=== PATIENT | female | born 2000 | race Caucasian/White ===

== ENCOUNTER 2018-08-24 10:51 | Emergency (ER) | payer SELFPAY ==
[2018-08-24 11:19] VITALS: TEMP 98.2
[2018-08-24] MEDS: ONDANSETRON INJ 4 MG/2 ML VIAL IV ONE (11:25)
[2018-08-24 13:32] VITALS: BP 102/84; O2SAT 99
--- NOTE | 2018-08-24 13:39 | US ---
EXAM DESCRIPTION: Pelvic,Non-OB CLINICAL HISTORY: 17 years Female diffuse abd pain MAIN . COMPARISON: None. TECHNIQUE: Transabdominal sonographic images of the pelvis were acquired and submitted for review. FINDINGS: Uterus: * Orientation- Anteverted * Size- approximately 7.3 x 3.5 x 4.4 cm * Mass- None * Cervix- Unremarkable * Endometrium- normal endometrial stripe thickness is present measuring approximately 0.3 cm. No endometrial mass is demonstrated. Ovaries: * Size- right measures approximately 3.2 x 3.1 x 2.6 cm; left measures approximately 2.3 x 2.6 x 2.4 cm * Mass- None * Vascular flow- Present. Adnexa: * Mass- None. * Free fluid - None. IMPRESSION: Normal transabdominal pelvic ultrasound. Electronically signed by: Aadm Foy MD 08/24/2018 1:38 PM [facility]
--- NOTE | 2018-08-24 14:04 | ED.PDOC ---
History of Present Illness - General Chief Complaint: Abdominal Pain Stated Complaint: abdominal pain Time Seen by Provider: 08/24/18 11:50 Source: patient Exam Limitations: no limitations - History of Present Illness Initial Comments: Patient presents with abdominal pain for one month. It is generalized and non- specific. She is unable to describe the quality. There are no exacerbating nor alleviating factors. She says that she has had vomiting almost daily. She had diarrhea the first few days but that has resolved. No previous episodes. She says that she had an ultrasound about two years ago and it showed "something" on her ovary. She currently does not take any medications. No other complaints. Timing/Duration: other - one month Severity: moderate Improving Factors: nothing Worsening Factors: nothing Associated Symptoms: denies symptoms Allergies/Adverse Reactions: Allergies Amoxicillin Allergy (Verified 08/24/18 11:14) Home Medications: Ambulatory Orders Ondansetron [Zofran Odt] 4 mg PO Q4HR PRN #20 tab 08/24/18 Review of Systems - Review of Systems Constitutional: States: no symptoms reported EENTM: States: no symptoms reported Respiratory: States: no symptoms reported Cardiology: States: no symptoms reported Gastrointestinal/Abdominal: States: see HPI Genitourinary: States: no symptoms reported Musculoskeletal: States: no symptoms reported Skin: States: no symptoms reported Neurological: States: no symptoms reported Endocrine: States: no symptoms reported Hematologic/Lymphatic: States: no symptoms reported Past Medical History (General) - Patient Medical History Hx Stroke: No Hx Congestive Heart Failure: No Hx Diabetes: No Surgical History: no surgical history - Vaccination History Hx Influenza Vaccination: No - Social History Hx Tobacco Use: Yes - Female History Patient is a Female of Child Bearing Age (10 -59 yrs old): Yes Family Medical History - Family History Mother Family History: Unknown Living Status: Unknown Physical Exam - Physical Exam General Appearance: Alert Eye Exam: bilateral normal Ears, Nose, Throat: normal ENT inspection Neck: non-tender, full range of motion, supple Respiratory: lungs clear, normal breath sounds Cardiovascular/Chest: normal peripheral pulses, regular rate, rhythm, no edema Gastrointestinal/Abdominal: normal bowel sounds, non tender, soft Back Exam: normal inspection, no CVA tenderness Extremity: normal range of motion, non-tender Neurologic: no motor/sensory deficits, alert, normal mood/affect, oriented x 3 Skin Exam: normal color Lymphatic: no adenopathy Progress - Progress Progress: 08/24/18 14:05 Laboratory Tests 08/24/18 08/24/18 08/24/18 11:10 11:15 11:15 WBC 6.5 RBC 4.87 Hgb 13.9 Hct 42.2 MCV 86.6 MCH 28.5 MCHC 32.9 L RDW 14.1 Plt Count 279 MPV 7.6 Absolute Neuts (auto) 4.30 Absolute Lymphs (auto) 1.50 Absolute Monos (auto) 0.50 Absolute Eos (auto) 0.10 Absolute Basos (auto) 0.00 Neutrophils % 66.9 Lymphocytes % 22.7 Monocytes % 8.1 Eosinophils % 1.6 Basophils % 0.7 Sodium 138 Potassium 3.6 Chloride 105 Carbon Dioxide 27 Anion Gap 9.6 L BUN 8 Creatinine 0.58 L BUN/Creatinine Ratio 13.8 Random Glucose 100 Serum Osmolality 274.1 L Calcium 9.1 Total Bilirubin 0.5 AST 21 ALT 17 Alkaline Phosphatase 50 L Serum Total Protein 7.7 Albumin 4.1 Globulin 3.6 H Albumin/Globulin Ratio 1.1 Lipase 21 L Serum HCG, Qual Urine Color Urine Appearance Urine pH Ur Specific [place] Urine Protein Urine Glucose (UA) Urine Ketones Urine Blood Urine Nitrite Urine Bilirubin Urine Urobilinogen Ur Leukocyte Esterase Urine RBC Urine WBC Ur Epithelial Cells Urine Bacteria Urine Opiates Screen Urine Barbiturates Ur Phencyclidine Scrn U Amphetamin/Meth Scrn U Benzodiazepines Scrn U Cocaine Metab Screen U Cannabinoids Screen 08/24/18 08/24/18 08/24/18 11:15 11:55 11:55 WBC RBC Hgb Hct MCV MCH MCHC RDW Plt Count MPV Absolute Neuts (auto) Absolute Lymphs (auto) Absolute Monos (auto) Absolute Eos (auto) Absolute Basos (auto) Neutrophils % Lymphocytes % Monocytes % Eosinophils % Basophils % Sodium Potassium Chloride Carbon Dioxide Anion Gap BUN Creatinine BUN/Creatinine Ratio Random Glucose Serum Osmolality Calcium Total Bilirubin AST ALT Alkaline Phosphatase Serum Total Protein Albumin Globulin Albumin/Globulin Ratio Lipase Serum HCG, Qual Negative Urine Color Yellow Urine Appearance Clear Urine pH 7.5 Ur Specific [place] 1.025 Urine Protein Negative Urine Glucose (UA) Negative Urine Ketones Negative Urine Blood Moderate H Urine Nitrite Negative Urine Bilirubin Negative Urine Urobilinogen 1.0 Ur Leukocyte Esterase Negative Urine RBC 0-1 Urine WBC 0 Ur Epithelial Cells 0 Urine Bacteria 0 Urine Opiates Screen Negative Urine Barbiturates Negative Ur Phencyclidine Scrn Negative U Amphetamin/Meth Scrn Negative U Benzodiazepines Scrn Negative U Cocaine Metab Screen Negative U Cannabinoids Screen Negative UA showed blood but patient is currently menstruating. Ultrasound of the pelvis was normal. I discussed the risks and benefits of a CT scan and the patient elected not to have one done at this time. She mentioned that she had chronic anxiety and was wondering about treatment for that. I recommended that she get established with a local physician who could treat and monitor that. She was given an RX for omeprazole and Zofran with instructions to follow up with a primary care physician. Care instructions given. E.R. warnings given. Questions were elicited and answered. Patient voiced understanding and agreement with the plan. Departure - Departure Clinical Impression: Abdominal pain Disposition: Discharge to Home or Self Care Condition: Good Departure Forms: ED Discharge - Pt. Copy, Patient Portal Self Enrollment Diet: low fat, low cholesterol Activity: increase activity as tolerated Prescriptions: Ondansetron [Zofran Odt] 4 mg PO Q4HR PRN #20 tab PRN Reason: Nausea Home Medications: Ambulatory Orders Ondansetron [Zofran Odt] 4 mg PO Q4HR PRN #20 tab 08/24/18 Additional Instructions: See a local physician and get established for the treatment of your anxiety. Take one omeprazole (Prilosec) tablet 30 minutes before your first meal of the day and another 30 minutes before your last meal of the day. If the nausea and vomiting continue, then either return to the E.R. for a possible CT scan or see your primary physician for possible consultation with a gastrointestinal doctor. Return to the E.R. if you have a temperature above 100.4. Use the ondansetron (Zofran) as directed for nausea and vomiting.
[2018-08-24] MEDS: traMADol HCL 50 MG TAB PO ONE (14:22)
== END 2018-08-24 14:29 | disposition home or self-care (01) ==
LOC: ER 10:51
DX: R10.84 Generalized abdominal pain (principal); F41.9 Anxiety disorder, unspecified; Z87.891 Personal history of nicotine dependence; Z88.1 Allergy status to other antibiotic agents
CPT/HCPCS: 36415; 76856; 80053; 80307; 81001; 83690; 84703; 85025; J2405

== ENCOUNTER 2018-10-31 12:08 | Emergency (ER) | payer OTHER ==
[2018-10-31 12:24] VITALS: TEMP 99.2
[2018-10-31] MEDS ORDERED: HYDROcodone 7.5MG/APAP 325MG 1 EA TAB PO ONE (12:29)
--- NOTE | 2018-10-31 12:31 | ED.PDOC ---
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 ( EMPLOYE OF [employer] ) Allergies/Adverse Reactions: Allergies Amoxicillin Allergy (Verified 08/24/18 11:14) Home Medications: Ambulatory Orders Cyclobenzaprine HCl [Flexeril] 10 mg PO TID #30 tab 10/31/18 Naproxen [Naprosyn] 500 mg PO Q12HRS #20 tab 10/31/18 Review of Systems - Review of Systems Constitutional: States: no symptoms reported EENTM: States: no symptoms reported Respiratory: States: no symptoms reported Cardiology: States: no symptoms reported Gastrointestinal/Abdominal: States: no symptoms reported Genitourinary: States: no symptoms reported Skin: States: no symptoms reported Neurological: States: no symptoms reported Endocrine: States: no symptoms reported Hematologic/Lymphatic: States: no symptoms reported Past Medical History (General) - Patient Medical History Hx Stroke: No Hx Congestive Heart Failure: No Hx Diabetes: No Surgical History: no surgical history - Vaccination History Hx Influenza Vaccination: No - Social History Hx Tobacco Use: Yes - Female History Patient is a Female of Child Bearing Age (10 -59 yrs old): Yes - currently on period Family Medical History - Family History Mother Family History: Unknown Living Status: Unknown Physical Exam - Physical Exam General Appearance: Alert, Comfortable Eye Exam: bilateral normal Ears, Nose, Throat: hearing grossly normal, normal ENT inspection, normal pharynx Neck: non-tender, full range of motion, supple Respiratory: chest non-tender, lungs clear, normal breath sounds, no respiratory distress, no accessory muscle use Cardiovascular/Chest: normal peripheral pulses, regular rate, rhythm, no edema, no gallop, no JVD Gastrointestinal/Abdominal: normal bowel sounds, non tender, soft, no organomegaly Back Exam: normal inspection, no CVA tenderness, no vertebral tenderness Neurologic: handkerchief maker II-XII nml as tested, no motor/sensory deficits, normal mood/affect, oriented x 3 Progress - Results/Orders Results/Orders: CT LUMBAR SPINE NEG X RAY SACRUM AND COCCYX NORMAL Departure - Departure Clinical Impression: Lumbar back pain with radiculopathy affecting left lower extremity Time of Disposition: 13:49 Disposition: Discharge to Home or Self Care Condition: Good Departure Forms: ED Discharge - Pt. Copy, Patient Portal Self Enrollment Instructions: DI for Leg Pain Prescriptions: Naproxen [Naprosyn] 500 mg PO Q12HRS #20 tab Cyclobenzaprine HCl [Flexeril] 10 mg PO TID #30 tab Home Medications: Ambulatory Orders Cyclobenzaprine HCl [Flexeril] 10 mg PO TID #30 tab 10/31/18 Naproxen [Naprosyn] 500 mg PO Q12HRS #20 tab 10/31/18
--- NOTE | 2018-10-31 12:52 | RAD ---
EXAM DESCRIPTION: Sacrum Coccyx CLINICAL HISTORY: 18 years Female, TRAUMA COMPARISON: None. FINDINGS: Three views of the sacrum and coccyx show no acute fracture or malalignment. The sacroiliac joints are unremarkable. Visualized portions of the pelvis are intact. IMPRESSION: No acute findings. If clinical suspicion of pelvic injury persists, CT should be considered. Electronically signed by: Corbin Ayala MD 10/31/2018 12:49 PM CDT
[2018-10-31 13:34] VITALS: BP 117/82
--- NOTE | 2018-10-31 13:39 | CT ---
EXAM DESCRIPTION: CT lumbar spine CLINICAL HISTORY: Fall injury. Lumbar spine pain COMPARISON: None Available. TECHNIQUE: Spiral CT with multiplanar reformatted images. This exam was performed according to our departmental dose-optimization program, which includes automated exposure control, adjustment of the mA and/or kV according to patient size and/or use of iterative reconstruction technique. FINDINGS: Mild osteoarthritis bilateral sacroiliac joints. No fracture of the sacrum, visualized pelvis, lumbar, visualized or lower thoracic spine. Remote nonunited L-1 right transverse process fracture versus developmental nonfusion No evidence of epidural hemorrhage or diagnostic traumatic disc herniation No mass or adenopathy in the visualized retroperitoneum IMPRESSION: No lumbar spine fracture Electronically signed by: David Alan MD 10/31/2018 1:36 PM CDT
[2018-10-31 14:02] VITALS: O2SAT 100
== END 2018-10-31 14:02 | disposition home or self-care (01) ==
LOC: ER 12:08
DX: M54.16 Radiculopathy, lumbar region (principal); Z87.891 Personal history of nicotine dependence; Z88.1 Allergy status to other antibiotic agents